=== PATIENT | male | born 1985 | race African-American/Black ===

== ENCOUNTER 2020-07-10 12:40 | Emergency (ER) | payer BC, SELFPAY | END 2020-07-10 13:14 | disposition home or self-care (01) | LOC: ERS 12:40 | DX: R19.7 Diarrhea, unspecified (principal); R11.0 Nausea | CPT/HCPCS: 99283 ==

== ENCOUNTER 2020-08-22 13:26 | Emergency (ER) | payer SELFPAY ==
--- NOTE | 2020-08-22 16:53 | RAD ---
Left ankle 3 views HISTORY: Left ankle pain. COMPARISON: 01/11/2015 and 08/15/2019. FINDINGS: Ankle mortise and talar dome are maintained. Mild osteophytosis. Joint space is preserved. No acute fracture or dislocation. Fluid distends the joint capsule on the lateral view. Degenerative changes of the hindfoot/midfoot also apparent. IMPRESSION : Mild arthritic changes. Joint fluid likely represents an effusion. No acute osseous abnormalities are demonstrated.
[2020-08-22] MEDS ORDERED: Acetaminophen 500 MG TAB ONE (17:12)
[2020-08-22] MEDS ORDERED: Ibuprofen 800 MG TAB ONE (17:12)
== END 2020-08-22 17:10 | disposition home or self-care (01) ==
LOC: ERS 13:26
DX: M25.572 Pain in left ankle and joints of left foot (principal); X50.0XXA Overexertion from strenuous movement or load, initial encounter